=== PATIENT | female | born 1975 | race Caucasian/White ===

== ENCOUNTER 2019-09-25 18:02 | Inpatient (IN) ==
--- NOTE | 2019-09-25 18:35 | DR.GENAD ---
HPI Time Seen Time Seen by Provider: 09/25/19 18:33 PCP Primary Care Physician: HUSSAIN HPI Comment HPI Comment: PATIENT IS Complaint/Symptoms Chief Complaint Doctors Comments: RIGHT FLANK PAIN AND RIGHT SIDE ABDOMINAL PAIN INTERMITTENTLY TIMES 2 MONTHS. Chief Complaint:: patient stated she has been having abd pain and right flank pain for 2 months. no nausea just pain when she has a bowel movement Source History Provided: Patient Mode of Arrival Mode of Arrival: Ambulatory Timing Onset of Chief Complaint: 07/23/19 PMH PMH Past Medical History: No Past Surgical History: Yes Surgical History: [employer] Surgery Family History History of Family Medical Conditions: Yes Family Medical History: Diabetes Mellitus Social History Does patient currently use any type of tobacco product: No Have you used tobacco products in the last 12 months: No Type of Tobacco Use: None Does any household member use tobacco: No Alcohol Use: Occasionally Do you use any recreational Drugs:: No Lives With: Family Lives Where: Home infectious screening In the last 2 months have you had wt loss of >10#?: NO Have you had fever, night sweats or hemotysis?: No Have you traveled outside the country in the last 6 months?: No Isolation: Standard ROS Review of Systems Constitutional: No Symptoms Reported and See HPI Eyes: No Symptoms Reported and See HPI ENTM: No Symptoms Reported and See HPI Respiratoy: No Symptoms Reported and See HPI Cardiovascular: No Symptoms Reported and See HPI Gastrointestinal/Abdominal: No Symptoms Reported and See HPI Genitourinary: No Symptoms Reported and See HPI Neurological: No Symptoms Reported and See HPI Musculoskeletal: No Symptoms Reported and See HPI Integumentary: No Symptoms Reported and See HPI Hematologic/Lymphatic: No Symptoms Reported and See HPI Endocrine: No Symptoms Reported and See HPI Psychiatric: No Symptoms Reported and See HPI All Other Systems: Reviewed and Negative PE Vital Signs Vitals: Temperature 98.7 F Pulse Rate 94 Respiratory Rate 16 Blood Pressure 127/75 O2 Sat by Pulse Oximetry 100 General Limitations: No Limitations General Appearance: Alert and In No Apparent Distress Head Head Exam: Normal Inspection Eyes Eye exam: Normal Appearance ENT ENT Exam: Normal Exam External Ear Exam: Normal External Inspection TM/Canal Exam: Bilateral: Normal Nose Exam: Normal Nose Exam Mouth Exam: Normal Inspection Throat Exam: Normal Inspection Neck Neck Exam: Normal Inspection Chest Chest Inspection: Normal Inspection Respiratory Respiratory Exam: Normal Lung Sounds Bilat Respiratory Exam: Bilateral: Clear to Auscultation Cardiovascular Cardiovascular Exam: Regular Rate and Normal Rhythm Abdominal Exam Abdominal Exam: Normal Inspection, Normal Bowel Sounds and Soft Extremities Extremities Exam: Normal Inspection Back Back Exam: Normal Inspection Neurologic Neurological Exam: Alert and Oriented X3 Psychiatric Psychiatric Exam: Normal Affect and Normal Mood Skin Skin Exam: Warm, Dry, Intact and Normal Color ROR Labs Reviewed Result Diagrams: 09/25/19 19:01 09/25/19 19: Laboratory: WBC 12.0 X10^3/uL (3.6-10.0) H 09/25/19: RBC 3.45 X10^6/uL (3.5-5.4) L 09/25/19 19: Hgb 6.9 g/dL (12.0-16.0) L* 09/25/19: Hct 22.3 % (36.0-47.0) L 09/25/19: MCV 64.7 fL (80.0-100.0) L 09/25/19: MCH 20.1 pg (27.0-34.0) L 09/25/19: MCHC 31.0 g/dL (33.0-35.0) L 09/25/19 19: RDW 18.7 % (11.6-16.5) H 09/25/19: Plt Count 557 X10^3/uL (150.0-450.0) H 09/25/19: Plt Count Comment Increased (ADEQUATE) A 09/25/19: MPV 7.0 fL (7.4-11.0) L 09/25/19 19: Neut % (Auto) 68.5 % (42.0-75.0) 09/25/19: Lymph % (Auto) 16.6 % (21.0-51.0) L 09/25/19: [place] % (Auto) 4.7 % (0.0-13.0) 09/25/19 19: Eos % (Auto) 9.9 % (0.9-2.9) H 09/25/19 19: Baso % (Auto) 0.3 % (0.2-1.0) 09/25/19: Neut # (Auto) 8.2 x10^3/uL (2.2-4.8) H 09/25/19 19:01 Lymph # (Auto) 2.0 X10^3/uL (1.3-2.9) 09/25/19 19:01 [place] # (Auto) 0.6 x10^3/uL (0.3-0.8) 09/25/19 19:01 Eos # (Auto) 1.2 x10^3/uL (0.0-0.2) H 09/25/19 19:01 Baso # (Auto) 0.0 X10^3/uL (0.0-0.1) 09/25/19 19:01 Absolute Nucleated RBC 0.0 /100WBC 09/25/19 19: Plt Morphology Comment Normal (NORMAL) 09/25/19 19: RBC Morphology Abnormal (NORMAL) A 09/25/19 19:01 Hypochromasia 2+ A 09/25/19 19: Microcytosis 2+ A 09/25/19 19: Sodium 136 mmol/L (136-145) 09/25/19 19: Corrected Sodium 137 mmol/L (136-145) 09/25/19 19:01 Potassium 3.9 mmol/L (3.5-5.1) 09/25/19 19: Chloride 100 mmol/L (98-107) 09/25/19 19: Carbon Dioxide 25.9 mmol/L (21-32) 09/25/19 19:01 BUN 17 mg/dL (7-18) 09/25/19 19: Creatinine 0.70 mg/dL (0.55-1.02) 09/25/19 19:01 Est GFR (MDRD) Af Amer > 60 (>60) 09/25/19 19:01 Est GFR (MDRD) Non-Af > 60 (>60) 09/25/19 19: Glucose 122 mg/dL (65-99) H 09/25/19 19:01 Calcium 8.9 mg/dL (8.5-10.1) 09/25/19 19:01 Corrected Calcium 9.7 mg/dL (8.5-10.1) 09/25/19 19: Total Bilirubin 0.20 mg/dL (0.2-1.0) 09/25/19 19:01 AST 22 Units/L (15-37) 09/25/19 19:01 ALT 25 Units/L (12-78) 09/25/19 19: Alkaline Phosphatase 129 Units/L (46-116) H 09/25/19 19:01 Total Protein 7.1 g/dL (6.4-8.2) 09/25/19 19: Albumin 3.0 g/dL (3.4-5.0) L 09/25/19 19: Globulin 4.1 g/dL (2.5-4.5) 09/25/19 19: Albumin/Globulin Ratio 0.7 Ratio (1.1-2.1) L 09/25/19 19: Amylase 26 Units/L (25-115) 09/25/19 19: Lipase 230 Units/L (73-393) 09/25/19 19:01 Specimen Type Clean catch urine 09/25/19 18: Urine Color Yellow (YELLOW) 09/25/19 18: Urine Appearance Slightly hazy (CLEAR) 09/25/19 18:29 Urine pH 6.0 (5.0 - 8.0) 09/25/19 18:29 Ur Specific [place] 1.025 (1.000-1.030) 09/25/19 18: Urine Protein Negative (NEGATIVE) 09/25/19 18: Urine Glucose (UA) Negative (NEGATIVE) 09/25/19 18: Urine Ketones Negative (NEGATIVE) 09/25/19 18:29 Urine Occult Blood Negative (NEGATIVE) 09/25/19 18: Urine Nitrite Negative (NEGATIVE) 09/25/19 18: Urine Bilirubin Negative (NEGATIVE) 09/25/19 18:29 Urine Urobilinogen Normal (NORMAL) 09/25/19 18:29 Ur Leukocyte Esterase 2+ (NEGATIVE) 09/25/19 18:29 Urine RBC 0-2 /HPF (0-3) 09/25/19 18: Urine WBC 3-5 /HPF (0-5) 09/25/19 18:29 Ur Squamous Epith Cells Many /HPF (NEGATIVE) 09/25/19 18:29 Urine Bacteria Trace /HPF (NEGATIVE) 09/25/19 18:29 Ur Culture Indicated? No/not indicated 09/25/19 18:29 Opioid Opioid Risk Tool Total: 0 Total Score Risk Category: Low Risk Copyright: [employer] [facility] predicting aberrant behaviors
[2019-09-25 18:46] LABS: BILIRUBIN,URINE NEGATIVE (NEGATIVE); BLOOD/HEMOGLOBIN,URINE NEGATIVE (NEGATIVE); GLUCOSE, URINE NEGATIVE (NEGATIVE); KETONES,URINE NEGATIVE (NEGATIVE); LEUKOCYTE ESTERASE ,URINE 2+ (NEGATIVE); NITRITES,URINE NEGATIVE (NEGATIVE); PROTEIN,URINE NEGATIVE (NEGATIVE); UROBILINOGEN,URINE NORMAL (NORMAL)
[2019-09-25 18:56] LABS: APPEARANCE,URINE SLIGHTLY HAZY (CLEAR); BACTERIA,URINE TRACE /HPF (NEGATIVE); COLOR,URINE YELLOW (YELLOW); RBC,URINE 0-2 /HPF (0-3); SQUAMOUS EPITHELIAL CELL,UR MANY /HPF (NEGATIVE)
[2019-09-25 19:07] LABS: BASOPHILS % (AUTO) 0.3 % (0.2-1.0); EOSINOPHILS # (AUTO) 1.2 x10^3/uL (0.0-0.2); EOSINOPHILS % (AUTO) 9.9 % (0.9-2.9); HEMATOCRIT 22.3 % (36.0-47.0); LYMPHOCYTES % (AUTO) 16.6 % (21.0-51.0); MEAN CORPUSCULAR HEMOGLOBIN 20.1 pg (27.0-34.0); MEAN CORPUSCULAR VOLUME 64.7 fL (80.0-100.0); MONOCYTES # (AUTO) 0.6 x10^3/uL (0.3-0.8); MONOCYTES % (AUTO) 4.7 % (0.0-13.0); NEUTROPHILS # (AUTO) 8.2 x10^3/uL (2.2-4.8); NEUTROPHILS % (AUTO) 68.5 % (42.0-75.0); PLATELET COUNT 557 X10^3/uL (150.0-450.0); RED BLOOD COUNT 3.45 X10^6/uL (3.5-5.4); RED CELL DISTRIBUTION WIDTH 18.7 % (11.6-16.5)
--- NOTE | 2019-09-25 19:08 | CT ---
CT OF THE ABDOMEN AND PELVIS WITHOUT CONTRAST HISTORY: 2 months of right flank pain Comparison: None Technique: Multiple axial images of the abdomen and pelvis were obtained from the lung bases to the pubic symphysis without the administration of IV contrast. Dose reduction techniques including Automated Exposure Control (AEC) and adjustment of mA and kV were utlized. Findings: The heart is normal in size. There is no pericardial effusion. Lung bases are clear without focal consolidation, pleural effusion or pneumothorax. Large hiatal hernia The sensitivity for focal lesion detection within the solid abdominal viscera is diminished without the use of IV contrast. Liver and spleen are normal in size, and contour. There are multiple large hypoattenuating liver mass. The largest is in the right liver measuring over 11 cm. Central liver lesion measures 5.3 x 3.3 cm. Smaller right liver lesion measures 2.9 cm . No ductal dilitation. Gallbladder is present. No calcified gallstones or gallbladder wall thickening. The pancreas is unremarkable. Adrenal glands are normal. Kidneys are normal in contour without hydronephrosis or nephrolithiasis. No bowel obstruction or inflammation. Normal appendix. No abnormal appearing mesenteric or retroperitoneal lymph nodes. No free fluid or fluid collections. The bladder is normal in appearance. Uterus present. Tubal ligation clips present.. No free fluid or abnormal pelvic lymph nodes. No aggressive osseous lesions. IMPRESSION: 1. Multiple large liver masses. While these may be benign entities such as hemangiomas, metastatic malignancy can certainly not be excluded on this limited noncontrast examination. Would recommend MRI of the abdomen with and without contrast on a outpatient basis. Reported By:
[2019-09-25 19:19] LABS: HEMOGLOBIN 6.9 g/dL (12.0-16.0)
[2019-09-25 19:21] LABS: HYPOCHROMASIA 2+; MICROCYTOSIS 2+; PLATELET MORPHOLOGY COMMENT NORMAL (NORMAL)
[2019-09-25 19:38] LABS: ALANINE AMINOTRANSFERASE 25 Units/L (12-78); ALKALINE PHOSPHATASE 129 Units/L (46-116); AMYLASE 26 Units/L (25-115); ASPARTATE AMINO TRANSFERASE 22 Units/L (15-37); BLOOD UREA NITROGEN 17 mg/dL (7-18); CALCIUM 8.9 mg/dL (8.5-10.1); CARBON DIOXIDE 25.9 mmol/L (21-32); CHLORIDE 100 mmol/L (98-107); COR CA(FOR HYPOALB) 9.7 mg/dL (8.5-10.1); COR NA(FOR HYPERGLY) 137 mmol/L (136-145); LIPASE 230 Units/L (73-393); SODIUM 136 mmol/L (136-145); TOTAL PROTEIN 7.1 g/dL (6.4-8.2); eGFR NON BLACK RACES > 60 (>60)
[2019-09-25] MEDS ORDERED: ZOFRAN INJ 4 MG VIAL IVP ONE (20:20)
[2019-09-25] MEDS ORDERED: DEMEROL INJ IVP ONE (20:20)
[2019-09-25] MEDS ORDERED: ZOFRAN INJ 4 MG VIAL ONE (20:31)
[2019-09-25] MEDS ORDERED: DEMEROL INJ ONE (20:32)
[2019-09-25] MEDS ORDERED: NS 250 ML IV 250 ML IV ONE (22:05)
[2019-09-25] MEDS: NS 1000 ML 1,000 ML IV SCH (22:09)
[2019-09-25 23:45] VITALS: BMI 34.4
[2019-09-26] MEDS: PROTONIX INJ 40 MG VIAL IVP SCH ×3 (00:30→21:27)
[2019-09-26] MEDS: DEMEROL INJ IVP PRN ×3 (00:30→15:13)
[2019-09-26 04:55] LABS: BASOPHILS # (AUTO) 0.1 X10^3/uL (0.0-0.1); BASOPHILS % (AUTO) 0.5 % (0.2-1.0); EOSINOPHILS # (AUTO) 1.2 x10^3/uL (0.0-0.2); EOSINOPHILS % (AUTO) 11.3 % (0.9-2.9); HEMATOCRIT 27.4 % (36.0-47.0); HEMOGLOBIN 8.6 g/dL (12.0-16.0); LYMPHOCYTES # (AUTO) 1.7 X10^3/uL (1.3-2.9); LYMPHOCYTES % (AUTO) 16.5 % (21.0-51.0); MEAN CORPUSCULAR HEMOGLOBIN 21.9 pg (27.0-34.0); MEAN CORPUSCULAR HGB CONC 31.6 g/dL (33.0-35.0); MEAN CORPUSCULAR VOLUME 69.4 fL (80.0-100.0); MEAN PLATELET VOLUME 7.5 fL (7.4-11.0); MONOCYTES # (AUTO) 0.6 x10^3/uL (0.3-0.8); MONOCYTES % (AUTO) 5.7 % (0.0-13.0); PLATELET COUNT 501 X10^3/uL (150.0-450.0); RED BLOOD COUNT 3.94 X10^6/uL (3.5-5.4); RED CELL DISTRIBUTION WIDTH 22.2 % (11.6-16.5); WHITE BLOOD COUNT 10.5 X10^3/uL (3.6-10.0)
[2019-09-26 04:59] LABS: ALANINE AMINOTRANSFERASE 24 Units/L (12-78); ALBUMIN 2.8 g/dL (3.4-5.0); ALKALINE PHOSPHATASE 123 Units/L (46-116); ASPARTATE AMINO TRANSFERASE 20 Units/L (15-37); BLOOD UREA NITROGEN 11 mg/dL (7-18); CALCIUM 8.5 mg/dL (8.5-10.1); CARBON DIOXIDE 27.2 mmol/L (21-32); CHLORIDE 101 mmol/L (98-107); COR CA(FOR HYPOALB) 9.5 mg/dL (8.5-10.1); COR NA(FOR HYPERGLY) 138 mmol/L (136-145); CREATININE 0.63 mg/dL (0.55-1.02); SODIUM 137 mmol/L (136-145); TOTAL PROTEIN 6.6 g/dL (6.4-8.2); eGFR NON BLACK RACES > 60 (>60)
[2019-09-26 06:07] LABS: PLATELET MORPHOLOGY COMMENT NORMAL (NORMAL)
[2019-09-26 06:08] LABS: ANISOCYTOSIS 2+; HYPOCHROMASIA 2+; MICROCYTOSIS 1+
--- NOTE | 2019-09-26 15:56 | MRI ---
MRI OF THE ABDOMEN WITHOUT AND WITH IV CONTRAST Clinical indication: Abdominal pain and liver masses Procedure: Multiplanar multi sequence MRI of the abdomen were obtained with and without the administration of intravenous contrast according to standard departmental protocol. Comparisons: CT 09/25/2019 Findings: MRI of the abdomen without contrast: No significant iron or fat deposition in the liver or spleen. No significant ascites. MRI of the abdomen with contrast: Multiple liver masses are present. The largest is in the inferior liver measuring 11 x 9 cm. This is intrinsically T2 bright, T2 dark. There is some reticular enhancement appears to progressed somewhat on delayed phase images although this does not have the typical peripheral nodular enhancement with filling in of a hemangioma. This enhancement appears to demonstrate radial septations. Similar lesions can be seen in the right liver measuring 3 cm on series 701, image 15 and in the left liver measuring 5.4 cm on series 701, image 7. This lesion in the left liver appears to demonstrate significant mass effect and possible invasion of the infra cardiac I see Gallbladder is present. No gallstones. No filling defects within the common bile duct. No ductal dilatation. Pancreas demonstrates normal T1 signal. No pancreatic masses. Adrenal glands are normal. Kidneys demonstrate normal cortical medullary differentiation. No hydronephrosis. Visualized bowel is unremarkable. No suspicious lymph nodes. Impression: 1. Multiple liver masses as above that are somewhat atypical. The left liver lesion appears to invade the IVC. Primary differential consideration would be metastatic disease of unknown primary. Additional consideration would be fibrolamellar carcinoma. Given patient's demographic, it should be noted that these do not have the typical imaging characteristics of adenoma, hemangioma or focal nodular hyperplasia. Tissue sampling will likely be required. Reported By:
[2019-09-26] MEDS ORDERED: NS 250 ML IV 250 ML IV ONE (17:53)
[2019-09-26] MEDS: NS 1000 ML 1,000 ML IV SCH (19:11)
[2019-09-26] MEDS: ULTRAM PO PRN (19:16)
[2019-09-26] MEDS ORDERED: POTASSIUM CHLORIDE LIQ 20 MEQ UDC PO PRN (22:47)
[2019-09-26] MEDS ORDERED: KLOR-CON PO PRN (22:47)
[2019-09-26] MEDS ORDERED: POTASSIUM CHL 60 MEQ/NS 0.45% 500 ML IV PRN (22:47)
[2019-09-26] MEDS ORDERED: POTASSIUM CHL 40 MEQ/NS 0.45% 500 ML IV PRN (22:47)
[2019-09-26] MEDS ORDERED: K-DUR TAB 20 MEQ PO PRN (22:47)
[2019-09-27] MEDS: DEMEROL INJ IVP PRN ×3 (01:28→20:33)
[2019-09-27] MEDS: NS 1000 ML 1,000 ML IV SCH ×2 (02:12→14:00)
[2019-09-27 02:23] LABS: HEMATOCRIT 33.6 % (36.0-47.0)
[2019-09-27 02:34] LABS: HEMOGLOBIN 10.6 g/dL (12.0-16.0)
[2019-09-27] MEDS: MAGNESIUM SULFATE 1 GRAM/100 mL PREMIX 1 GM/100 ML BAG IV PRN ×2 (05:20→05:21)
[2019-09-27 06:47] LABS: BASOPHILS % (AUTO) 0.4 % (0.2-1.0); EOSINOPHILS # (AUTO) 1.2 x10^3/uL (0.0-0.2); EOSINOPHILS % (AUTO) 10.2 % (0.9-2.9); HEMATOCRIT 33.5 % (36.0-47.0); HEMOGLOBIN 10.8 g/dL (12.0-16.0); LYMPHOCYTES # (AUTO) 1.8 X10^3/uL (1.3-2.9); LYMPHOCYTES % (AUTO) 14.8 % (21.0-51.0); MEAN CORPUSCULAR HEMOGLOBIN 23.3 pg (27.0-34.0); MEAN CORPUSCULAR HGB CONC 32.3 g/dL (33.0-35.0); MEAN CORPUSCULAR VOLUME 72.2 fL (80.0-100.0); MEAN PLATELET VOLUME 7.6 fL (7.4-11.0); MONOCYTES # (AUTO) 0.7 x10^3/uL (0.3-0.8); MONOCYTES % (AUTO) 5.5 % (0.0-13.0); NEUTROPHILS # (AUTO) 8.2 x10^3/uL (2.2-4.8); NEUTROPHILS % (AUTO) 69.1 % (42.0-75.0); PLATELET COUNT 469 X10^3/uL (150.0-450.0); RED BLOOD COUNT 4.63 X10^6/uL (3.5-5.4); RED CELL DISTRIBUTION WIDTH 24.2 % (11.6-16.5); WHITE BLOOD COUNT 11.9 X10^3/uL (3.6-10.0)
[2019-09-27 06:55] LABS: ALANINE AMINOTRANSFERASE 23 Units/L (12-78); ALBUMIN 2.8 g/dL (3.4-5.0); ALKALINE PHOSPHATASE 128 Units/L (46-116); ASPARTATE AMINO TRANSFERASE 22 Units/L (15-37); BLOOD UREA NITROGEN 10 mg/dL (7-18); CARBON DIOXIDE 26.4 mmol/L (21-32); CHLORIDE 99 mmol/L (98-107); SODIUM 134 mmol/L (136-145); TOTAL PROTEIN 6.9 g/dL (6.4-8.2); eGFR NON BLACK RACES > 60 (>60)
[2019-09-27 07:02] LABS: PLATELET MORPHOLOGY COMMENT NORMAL (NORMAL)
[2019-09-27 07:04] LABS: ANISOCYTOSIS 3+; HYPOCHROMASIA 1+
[2019-09-27 07:05] LABS: MICROCYTOSIS SLIGHT
[2019-09-27] MEDS: PROTONIX INJ 40 MG VIAL IVP SCH ×2 (09:46→20:33)
--- NOTE | 2019-09-27 11:12 | PCM.PROG ---
Progress Note Progress Note for Day of Date of Exam: 09/27/19 Subjective Subjective: Pt is a 44 yo f presenting w/ right flank pain and right sided abdominal pain x [address] abdomen that noted on multiple large liver masses. MRI performed yesterday. Briefly discussed results with patient and likely need for further evaluation to be determined. Abdominal pain improved from day prior. MRI(09/26/19): Multiple liver masses as above that are somewhat atypical. The left liver lesion appears to invade the IVC. Primary differential consideration would be metastatic disease of unknown primary. Additional consideration would be fibrolamellar carcinoma. Given patient's demographic, it should be noted that these do not have the typical imaging characteristics of adenoma, hemangioma or focal nodular hyperplasia. Tissue sampling will likely be required. Past Medical Family Social History Past Med/Fam/Surg Hx: No changes since H&P Allergies: Allergies No Known Drug Allergies Allergy (Verified 09/25/19 23:48) Review of Systems ROS: No change since H&P Vital Signs and I&O's Vital Signs: Temperature 99.6 F Pulse Rate [Brachial] 78 Pulse Rate 83 Respiratory Rate 18 Blood Pressure [Left Arm] 118/69 Blood Pressure 116/61 O2 Sat by Pulse Oximetry 98 Intake and Output: Intake & Output 09/24/19 09/25/19 09/26/19 09/27/19 23:59 23:59 23:59 23:59 Intake Total 410 / 410 2166 / 2166 220 / 220 Balance 410 / 410 2166 / 2166 220 / 220 Physical Exam Oriented: Normal Nose: Normal Respiratory: Normal Cardiovascular: Normal : Normal Auscultation: Bowel Sounds: Normal Tenderness: RUQ (mild) Skin: Normal Musculoskeletal: Normal Psychiatric: Normal Mood Description: Calm Affect: Anxious Speech Pattern: Clear and Appropriate Laboratory and Diagnostics Result Diagrams: 09/27/19 06:12 09/27/19 06:12 Labs: Laboratory WBC 11.9 X10^3/uL (3.6-10.0) H 09/27/19 06:12 RBC 4.63 X10^6/uL (3.5-5.4) 09/27/19 06:12 Hgb 10.8 g/dL (12.0-16.0) L 09/27/19 06:12 Hct 33.5 % (36.0-47.0) L 09/27/19 06:12 MCV 72.2 fL (80.0-100.0) L 09/27/19 06:12 MCH 23.3 pg (27.0-34.0) L 09/27/19 06:12 MCHC 32.3 g/dL (33.0-35.0) L 09/27/19 06:12 RDW 24.2 % (11.6-16.5) H 09/27/19 06:12 Plt Count 469 X10^3/uL (150.0-450.0) H 09/27/19 06:12 Plt Count Comment Increased (ADEQUATE) A 09/27/19 06:12 MPV 7.6 fL (7.4-11.0) 09/27/19 06:12 Neut % (Auto) 69.1 % (42.0-75.0) 09/27/19 06:12 Lymph % (Auto) 14.8 % (21.0-51.0) L 09/27/19 06:12 [place] % (Auto) 5.5 % (0.0-13.0) 09/27/19 06:12 Eos % (Auto) 10.2 % (0.9-2.9) H 09/27/19 06:12 Baso % (Auto) 0.4 % (0.2-1.0) 09/27/19 06:12 Neut # (Auto) 8.2 x10^3/uL (2.2-4.8) H 09/27/19 06:12 Lymph # (Auto) 1.8 X10^3/uL (1.3-2.9) 09/27/19 06:12 [place] # (Auto) 0.7 x10^3/uL (0.3-0.8) 09/27/19 06:12 Eos # (Auto) 1.2 x10^3/uL (0.0-0.2) H 09/27/19 06:12 Baso # (Auto) 0.0 X10^3/uL (0.0-0.1) 09/27/19 06:12 Absolute Nucleated RBC 0.0 /100WBC 09/27/19 06:12 Plt Morphology Comment Normal (NORMAL) 09/27/19 06:12 RBC Morphology Abnormal (NORMAL) A 09/27/19 06:12 Hypochromasia 1+ A 09/27/19 06:12 Anisocytosis 3+ A 09/27/19 06:12 Microcytosis Slight A 09/27/19 06:12 PT 12.6 SECONDS (11.8-14.3) 09/26/19 04:13 INR Target Range - 09/26/19 04:13 INR 0.98 (0.8-1.3) 09/26/19 04:13 APTT 25.2 SECONDS (22.9-36.5) 09/26/19 04:13 PTT Comment - 09/26/19 04:13 Sodium 134 mmol/L (136-145) L 09/27/19 06:12 Corrected Sodium TNP 09/27/19 06:12 Potassium 3.9 mmol/L (3.5-5.1) 09/27/19 06:12 Chloride 99 mmol/L (98-107) 09/27/19 06:12 Carbon Dioxide 26.4 mmol/L (21-32) 09/27/19 06:12 BUN 10 mg/dL (7-18) 09/27/19 06:12 Creatinine 0.60 mg/dL (0.55-1.02) 09/27/19 06:12 Est GFR (MDRD) Af Amer > 60 (>60) 09/27/19 06:12 Est GFR (MDRD) Non-Af > 60 (>60) 09/27/19 06:12 Glucose 109 mg/dL (65-99) H 09/27/19 06:12 Calcium 9.0 mg/dL (8.5-10.1) 09/27/19 06:12 Corrected Calcium 10.0 mg/dL (8.5-10.1) 09/27/19 06:12 Magnesium 1.6 mg/dL (1.7-2.9) L 09/26/19 04:13 Iron 14 ug/dL (50-175) L 09/25/19 20:27 Transferrin 343 mg/dL (202-364) 09/25/19 20:27 Ferritin 20 ng/mL (8-252) 09/25/19 20:27 Total Bilirubin 0.40 mg/dL (0.2-1.0) 09/27/19 06:12 AST 22 Units/L (15-37) 09/27/19 06:12 ALT 23 Units/L (12-78) 09/27/19 06:12 Alkaline Phosphatase 128 Units/L (46-116) H 09/27/19 06:12 Total Protein 6.9 g/dL (6.4-8.2) 09/27/19 06:12 Albumin 2.8 g/dL (3.4-5.0) L 09/27/19 06:12 Globulin 4.1 g/dL (2.5-4.5) 09/27/19 06:12 Albumin/Globulin Ratio 0.7 Ratio (1.1-2.1) L 09/27/19 06:12 Amylase 26 Units/L (25-115) 09/25/19 19:01 Lipase 230 Units/L (73-393) 09/25/19 19:01 Vitamin B12 1182 pg/mL (193-986) H 09/25/19 20:27 Folate 12.1 ng/mL (>8.6) 09/25/19 20:27 Specimen Type Clean catch urine 09/25/19 18:29 Urine Color Yellow (YELLOW) 09/25/19 18:29 Urine Appearance Slightly hazy (CLEAR) 09/25/19 18: Urine pH 6.0 (5.0 - 8.0) 09/25/19 18: Ur Specific [place] 1.025 (1.000-1.030) 09/25/19 18:29 Urine Protein Negative (NEGATIVE) 09/25/19 18:29 Urine Glucose (UA) Negative (NEGATIVE) 09/25/19 18:29 Urine Ketones Negative (NEGATIVE) 09/25/19 18: Urine Occult Blood Negative (NEGATIVE) 09/25/19 18: Urine Nitrite Negative (NEGATIVE) 09/25/19 18:29 Urine Bilirubin Negative (NEGATIVE) 09/25/19 18:29 Urine Urobilinogen Normal (NORMAL) 09/25/19 18:29 Ur Leukocyte Esterase 2+ (NEGATIVE) 09/25/19 18:29 Urine RBC 0-2 /HPF (0-3) 09/25/19 18:29 Urine WBC 3-5 /HPF (0-5) 09/25/19 18:29 Ur Squamous Epith Cells Many /HPF (NEGATIVE) 09/25/19 18:29 Urine Bacteria Trace /HPF (NEGATIVE) 09/25/19 18:29 Ur Culture Indicated? No/not indicated 09/25/19 18:29 Blood Type B POSITIVE 09/25/19 20:27 Antibody Screen Negative 09/25/19 20:27 Crossmatch See Detail 09/25/19 20:27 Plan (1) Liver masses: Status: Acute Plan: -MRI findings multiple liver masses suspicious for metastatic disease of unknown primary. Will need additional evaluation and biopsy of mass. (2) Anemia: Status: Acute Plan: Hgb:10.8
[2019-09-27] MEDS: ZOFRAN INJ 4 MG VIAL IVP PRN (14:55)
[2019-09-28] MEDS: NS 1000 ML 1,000 ML IV SCH ×2 (03:13→17:08)
[2019-09-28 06:36] LABS: BASOPHILS % (AUTO) 0.3 % (0.2-1.0); EOSINOPHILS % (AUTO) 9.4 % (0.9-2.9); HEMATOCRIT 34.3 % (36.0-47.0); HEMOGLOBIN 11.1 g/dL (12.0-16.0); LYMPHOCYTES # (AUTO) 1.5 X10^3/uL (1.3-2.9); LYMPHOCYTES % (AUTO) 13.3 % (21.0-51.0); MEAN CORPUSCULAR HEMOGLOBIN 23.3 pg (27.0-34.0); MEAN CORPUSCULAR HGB CONC 32.3 g/dL (33.0-35.0); MEAN CORPUSCULAR VOLUME 72.2 fL (80.0-100.0); MEAN PLATELET VOLUME 7.4 fL (7.4-11.0); MONOCYTES # (AUTO) 0.7 x10^3/uL (0.3-0.8); MONOCYTES % (AUTO) 6.6 % (0.0-13.0); NEUTROPHILS # (AUTO) 7.7 x10^3/uL (2.2-4.8); NEUTROPHILS % (AUTO) 70.4 % (42.0-75.0); PLATELET COUNT 489 X10^3/uL (150.0-450.0); RED BLOOD COUNT 4.75 X10^6/uL (3.5-5.4); RED CELL DISTRIBUTION WIDTH 24.5 % (11.6-16.5)
[2019-09-28 06:46] LABS: ANISOCYTOSIS 3+; HYPOCHROMASIA 1+; MICROCYTOSIS SLIGHT; PLATELET MORPHOLOGY COMMENT NORMAL (NORMAL)
[2019-09-28 06:51] LABS: ALANINE AMINOTRANSFERASE 23 Units/L (12-78); ALBUMIN 2.8 g/dL (3.4-5.0); ALKALINE PHOSPHATASE 131 Units/L (46-116); ASPARTATE AMINO TRANSFERASE 21 Units/L (15-37); BLOOD UREA NITROGEN 7 mg/dL (7-18); CARBON DIOXIDE 27.9 mmol/L (21-32); CHLORIDE 100 mmol/L (98-107); COR NA(FOR HYPERGLY) 138 mmol/L (136-145); CREATININE 0.58 mg/dL (0.55-1.02); MAGNESIUM 1.8 mg/dL (1.7-2.9); SODIUM 137 mmol/L (136-145); TOTAL PROTEIN 7.1 g/dL (6.4-8.2); eGFR NON BLACK RACES > 60 (>60)
[2019-09-28] MEDS: PROTONIX INJ 40 MG VIAL IVP SCH ×2 (09:01→20:08)
--- NOTE | 2019-09-28 10:37 | PCM.PROG ---
Progress Note Progress Note for Day of Date of Exam: 09/28/19 Subjective Subjective: Pt is a 44 yo f presenting w/ right flank pain and right sided abdominal pain x 2 months. She was anemic on admission, requiring 2 units of packed red blood cells. Her hgb has remained stable. MRI performed of abd after CT concerning for liver lesions, results noted multiple liver masses. She reports today that her abdominal pain has improved. She is tolerating po intake, reports some constipation. Has not had bowel movement since but is still passing gas. No acute concerns overnight. MRI(09/26/19): Multiple liver masses as above that are somewhat atypical. The left liver lesion appears to invade the IVC. Primary differential consideration would be metastatic disease of unknown primary. Additional consideration would be fibrolamellar carcinoma. Given patient's demographic, it should be noted that these do not have the typical imaging characteristics of adenoma, hemangioma or focal nodular hyperplasia. Tissue sampling will likely be required. Past Medical Family Social History Past Med/Fam/Surg Hx: No changes since H&P Allergies: Allergies No Known Drug Allergies Allergy (Verified 09/25/19 23:48) Review of Systems ROS: No change since H&P Vital Signs and I&O's Vital Signs: Temperature 99.6 F Pulse Rate [Brachial] 69 Pulse Rate 83 Respiratory Rate 16 Blood Pressure [Left Arm] 123/69 Blood Pressure 116/61 O2 Sat by Pulse Oximetry 98 Intake and Output: Intake & Output 09/25/19 09/26/19 09/27/19 09/28/19 23:59 23:59 23:59 23:59 Intake Total 410 / 410 2166 / 2166 1260 / 1260 540 / 540 Balance 410 / 410 2166 / 2166 1260 / 1260 540 / 540 Physical Exam Oriented: Normal Nose: Normal Respiratory: Normal Cardiovascular: Normal : Normal Auscultation: Bowel Sounds: Normal Tenderness: RUQ (mild) Skin: Normal Musculoskeletal: Normal Psychiatric: Normal Mood Description: Calm Affect: Anxious Speech Pattern: Clear and Appropriate Laboratory and Diagnostics Result Diagrams: 09/29/19 05:59 09/29/19 05:59 Labs: Laboratory WBC 11.0 X10^3/uL (3.6-10.0) H 09/28/19 06:13 RBC 4.75 X10^6/uL (3.5-5.4) 09/28/19 06:13 Hgb 11.1 g/dL (12.0-16.0) L 09/28/19 06:13 Hct 34.3 % (36.0-47.0) L 09/28/19 06:13 MCV 72.2 fL (80.0-100.0) L 09/28/19 06:13 MCH 23.3 pg (27.0-34.0) L 09/28/19 06:13 MCHC 32.3 g/dL (33.0-35.0) L 09/28/19 06:13 RDW 24.5 % (11.6-16.5) H 09/28/19 06:13 Plt Count 489 X10^3/uL (150.0-450.0) H 09/28/19 06:13 Plt Count Comment Increased (ADEQUATE) A 09/28/19 06:13 MPV 7.4 fL (7.4-11.0) 09/28/19 06:13 Neut % (Auto) 70.4 % (42.0-75.0) 09/28/19 06:13 Lymph % (Auto) 13.3 % (21.0-51.0) L 09/28/19 06:13 [place] % (Auto) 6.6 % (0.0-13.0) 09/28/19 06:13 Eos % (Auto) 9.4 % (0.9-2.9) H 09/28/19 06:13 Baso % (Auto) 0.3 % (0.2-1.0) 09/28/19 06:13 Neut # (Auto) 7.7 x10^3/uL (2.2-4.8) H 09/28/19 06:13 Lymph # (Auto) 1.5 X10^3/uL (1.3-2.9) 09/28/19 06:13 [place] # (Auto) 0.7 x10^3/uL (0.3-0.8) 09/28/19 06:13 Eos # (Auto) 1.0 x10^3/uL (0.0-0.2) H 09/28/19 06:13 Baso # (Auto) 0.0 X10^3/uL (0.0-0.1) 09/28/19 06:13 Absolute Nucleated RBC 0.0 /100WBC 09/28/19 06:13 Plt Morphology Comment Normal (NORMAL) 09/28/19 06:13 RBC Morphology Abnormal (NORMAL) A 09/28/19 06:13 Hypochromasia 1+ A 09/28/19 06:13 Anisocytosis 3+ A 09/28/19 06:13 Microcytosis Slight A 09/28/19 06:13 PT 12.6 SECONDS (11.8-14.3) 09/26/19 04:13 INR Target Range - 09/26/19 04:13 INR 0.98 (0.8-1.3) 09/26/19 04:13 APTT 25.2 SECONDS (22.9-36.5) 09/26/19 04:13 PTT Comment - 09/26/19 04:13 Sodium 137 mmol/L (136-145) 09/28/19 06:13 Corrected Sodium 138 mmol/L (136-145) 09/28/19 06:13 Potassium 3.6 mmol/L (3.5-5.1) 09/28/19 06:13 Chloride 100 mmol/L (98-107) 09/28/19 06:13 Carbon Dioxide 27.9 mmol/L (21-32) 09/28/19 06:13 BUN 7 mg/dL (7-18) 09/28/19 06:13 Creatinine 0.58 mg/dL (0.55-1.02) 09/28/19 06:13 Est GFR (MDRD) Af Amer > 60 (>60) 09/28/19 06:13 Est GFR (MDRD) Non-Af > 60 (>60) 09/28/19 06:13 Glucose 152 mg/dL (65-99) H 09/28/19 06:13 Calcium 9.0 mg/dL (8.5-10.1) 09/28/19 06:13 Corrected Calcium 10.0 mg/dL (8.5-10.1) 09/28/19 06:13 Magnesium 1.8 mg/dL (1.7-2.9) 09/28/19 06:13 Iron 14 ug/dL (50-175) L 09/25/19 20:27 Transferrin 343 mg/dL (202-364) 09/25/19 20:27 Ferritin 20 ng/mL (8-252) 09/25/19 20:27 Total Bilirubin 0.40 mg/dL (0.2-1.0) 09/28/19 06:13 AST 21 Units/L (15-37) 09/28/19 06:13 ALT 23 Units/L (12-78) 09/28/19 06:13 Alkaline Phosphatase 131 Units/L (46-116) H 09/28/19 06:13 Total Protein 7.1 g/dL (6.4-8.2) 09/28/19 06:13 Albumin 2.8 g/dL (3.4-5.0) L 09/28/19 06:13 Globulin 4.3 g/dL (2.5-4.5) 09/28/19 06:13 Albumin/Globulin Ratio 0.7 Ratio (1.1-2.1) L 09/28/19 06:13 Amylase 26 Units/L (25-115) 09/25/19 19:01 Lipase 230 Units/L (73-393) 09/25/19 19:01 Vitamin B12 1182 pg/mL (193-986) H 09/25/19 20:27 Folate 12.1 ng/mL (>8.6) 09/25/19 20:27 Specimen Type Clean catch urine 09/25/19 18: Urine Color Yellow (YELLOW) 09/25/19 18: Urine Appearance Slightly hazy (CLEAR) 09/25/19 18: Urine pH 6.0 (5.0 - 8.0) 09/25/19 18: Ur Specific [place] 1.025 (1.000-1.030) 09/25/19 18: Urine Protein Negative (NEGATIVE) 09/25/19 18: Urine Glucose (UA) Negative (NEGATIVE) 09/25/19 18: Urine Ketones Negative (NEGATIVE) 09/25/19 18: Urine Occult Blood Negative (NEGATIVE) 09/25/19 18: Urine Nitrite Negative (NEGATIVE) 09/25/19 18: Urine Bilirubin Negative (NEGATIVE) 09/25/19 18: Urine Urobilinogen Normal (NORMAL) 09/25/19 18:29 Ur Leukocyte Esterase 2+ (NEGATIVE) 09/25/19 18: Urine RBC 0-2 /HPF (0-3) 09/25/19 18:29 Urine WBC 3-5 /HPF (0-5) 09/25/19 18:29 Ur Squamous Epith Cells Many /HPF (NEGATIVE) 09/25/19 18:29 Urine Bacteria Trace /HPF (NEGATIVE) 09/25/19 18:29 Ur Culture Indicated? No/not indicated 09/25/19 18:29 Blood Type B POSITIVE 09/25/19 20:27 Antibody Screen Negative 09/25/19 20:27 Crossmatch See Detail 09/25/19 20:27 Plan (1) Liver masses: Status: Acute Plan: -MRI findings multiple liver masses suspicious for metastatic disease of unknown primary. Will need additional evaluation and biopsy of mass. -CEA ordered. Primary to follow up in the morning. (2) Anemia: Status: Acute Plan: Hgb:6.9>2 units packed red blood cells>10.8>11.1, FOBT ordered. (3) Constipation: Status: Acute Plan: Ordered miralax and Colace.
[2019-09-28] MEDS: DEMEROL INJ IVP PRN ×2 (10:39→20:08)
[2019-09-28] MEDS: MIRALAX POWDER (1 DOSE 17 G) PO SCH (11:11)
[2019-09-28] MEDS: ULTRAM PO PRN (14:28)
[2019-09-28] MEDS: COLACE CAP 100 MG PO PRN (22:13)
[2019-09-29] MEDS: NS 1000 ML 1,000 ML IV SCH ×2 (05:09→17:01)
[2019-09-29 06:33] LABS: BASOPHILS # (AUTO) 0.1 X10^3/uL (0.0-0.1); BASOPHILS % (AUTO) 0.4 % (0.2-1.0); EOSINOPHILS # (AUTO) 1.3 x10^3/uL (0.0-0.2); EOSINOPHILS % (AUTO) 11.1 % (0.9-2.9); HEMATOCRIT 33.7 % (36.0-47.0); HEMOGLOBIN 10.9 g/dL (12.0-16.0); LYMPHOCYTES # (AUTO) 1.4 X10^3/uL (1.3-2.9); LYMPHOCYTES % (AUTO) 12.1 % (21.0-51.0); MEAN CORPUSCULAR HEMOGLOBIN 23.6 pg (27.0-34.0); MEAN CORPUSCULAR HGB CONC 32.4 g/dL (33.0-35.0); MEAN CORPUSCULAR VOLUME 72.8 fL (80.0-100.0); MEAN PLATELET VOLUME 7.6 fL (7.4-11.0); MONOCYTES # (AUTO) 0.5 x10^3/uL (0.3-0.8); MONOCYTES % (AUTO) 4.7 % (0.0-13.0); NEUTROPHILS # (AUTO) 8.2 x10^3/uL (2.2-4.8); NEUTROPHILS % (AUTO) 71.7 % (42.0-75.0); PLATELET COUNT 466 X10^3/uL (150.0-450.0); RED BLOOD COUNT 4.64 X10^6/uL (3.5-5.4); RED CELL DISTRIBUTION WIDTH 24.2 % (11.6-16.5); WHITE BLOOD COUNT 11.5 X10^3/uL (3.6-10.0)
[2019-09-29 07:01] LABS: ALANINE AMINOTRANSFERASE 29 Units/L (12-78); ALBUMIN 2.7 g/dL (3.4-5.0); ALKALINE PHOSPHATASE 139 Units/L (46-116); ASPARTATE AMINO TRANSFERASE 27 Units/L (15-37); BLOOD UREA NITROGEN 10 mg/dL (7-18); CALCIUM 9.1 mg/dL (8.5-10.1); CARBON DIOXIDE 27.5 mmol/L (21-32); CHLORIDE 100 mmol/L (98-107); COR CA(FOR HYPOALB) 10.1 mg/dL (8.5-10.1); CREATININE 0.61 mg/dL (0.55-1.02); SODIUM 137 mmol/L (136-145); eGFR NON BLACK RACES > 60 (>60)
[2019-09-29 07:08] LABS: HYPOCHROMASIA 1+; PLATELET MORPHOLOGY COMMENT NORMAL (NORMAL)
[2019-09-29 07:09] LABS: ANISOCYTOSIS 3+
[2019-09-29] MEDS ORDERED: NS 100 ML IV 100 ML with VENOFER 400 MG IV NR ×2 (09:03)
[2019-09-29] MEDS: PROTONIX INJ 40 MG VIAL IVP SCH ×2 (09:20→21:03)
[2019-09-29] MEDS: MIRALAX POWDER (1 DOSE 17 G) PO SCH (09:20)
[2019-09-29] MEDS: NULYTELY or GO-LYTELY PO SCH (10:34)
[2019-09-29] MEDS: ULTRAM PO PRN (21:03)
[2019-09-29] MEDS: TYLENOL 325 MG TAB PO PRN (21:31)
[2019-09-30] MEDS ORDERED: NS 500 ML IV 500 ML IV ONE (07:16)
[2019-09-30] MEDS ORDERED: DIPRIVAN VIAL 40 ML ONE (07:28)
[2019-09-30] MEDS ORDERED: DIPRIVAN VIAL 20 ML ONE (07:29)
[2019-09-30] MEDS ORDERED: XYLOCAINE-MPF 1% ONE (07:29)
[2019-09-30] MEDS ORDERED: VERSED ONE ×2 (07:29→10:11)
[2019-09-30] MEDS: NS 1000 ML 1,000 ML IV SCH ×2 (07:42→18:17)
--- NOTE | 2019-09-30 08:15 | OR.IMMED ---
Immediate Post-Op Note - Immediate Post-Op Note Pre-Op Diagnosis: anemia . rectal bleeding . liver mets . Post-Op Diagnosis: hiatal hernia without esophagitis . no ulcers or bleeding . ulcerated rectal mass around 15 cm suspicious for malignancy . Procedure: 1-EGD . 2-colonoscopy to the cecum with Bx and Tattooing of rectal mass .. Description of Procedure: see operative report . Surgeon/Ocular Care Technologist: Bogdan Findings: hiatal hernia . rectal mass at 15 cm suspicious for malignancy .. Estimated Blood Loss: no Drains: NONE Complications: no. Condition: Stable (will wait for pathology report and D/W Dr Du and Pt..)
[2019-09-30] MEDS: MIRALAX POWDER (1 DOSE 17 G) PO SCH (08:33)
[2019-09-30] MEDS: PROTONIX INJ 40 MG VIAL IVP SCH ×2 (08:33→21:15)
[2019-09-30] MEDS: NULYTELY or GO-LYTELY PO SCH (08:34)
[2019-09-30] MEDS ORDERED: XYLOCAINE 1 % (PLAIN) ONE (10:11)
[2019-09-30] MEDS ORDERED: DIPRIVAN VIAL ONE (10:11)
[2019-09-30] MEDS: DEMEROL INJ IVP PRN (14:26)
[2019-09-30] MEDS ORDERED: STERILE WATER IRRIGATION IR ONE (15:43)
[2019-10-01] MEDS ORDERED: NS 100 ML IV 100 ML with VENOFER 400 MG IV NR ×2 (08:07)
[2019-10-01] MEDS: NS 1000 ML 1,000 ML IV SCH (10:01)
[2019-10-01] MEDS: PROTONIX INJ 40 MG VIAL IVP SCH ×2 (10:02→20:43)
[2019-10-01 11:43] LABS: BASOPHILS # (AUTO) 0.1 X10^3/uL (0.0-0.1); BASOPHILS % (AUTO) 0.6 % (0.2-1.0); EOSINOPHILS # (AUTO) 0.3 x10^3/uL (0.0-0.2); EOSINOPHILS % (AUTO) 3.6 % (0.9-2.9); HEMOGLOBIN 10.8 g/dL (12.0-16.0); LYMPHOCYTES # (AUTO) 1.4 X10^3/uL (1.3-2.9); LYMPHOCYTES % (AUTO) 14.2 % (21.0-51.0); MEAN CORPUSCULAR HEMOGLOBIN 23.3 pg (27.0-34.0); MEAN CORPUSCULAR HGB CONC 31.9 g/dL (33.0-35.0); MEAN PLATELET VOLUME 7.4 fL (7.4-11.0); MONOCYTES # (AUTO) 0.5 x10^3/uL (0.3-0.8); MONOCYTES % (AUTO) 5.5 % (0.0-13.0); NEUTROPHILS # (AUTO) 7.5 x10^3/uL (2.2-4.8); NEUTROPHILS % (AUTO) 76.1 % (42.0-75.0); PLATELET COUNT 487 X10^3/uL (150.0-450.0); RED BLOOD COUNT 4.66 X10^6/uL (3.5-5.4); RED CELL DISTRIBUTION WIDTH 24.6 % (11.6-16.5); WHITE BLOOD COUNT 9.8 X10^3/uL (3.6-10.0)
[2019-10-01 11:56] LABS: ALANINE AMINOTRANSFERASE 27 Units/L (12-78); ALKALINE PHOSPHATASE 141 Units/L (46-116); ASPARTATE AMINO TRANSFERASE 22 Units/L (15-37); BLOOD UREA NITROGEN 5 mg/dL (7-18); CALCIUM 9.3 mg/dL (8.5-10.1); CHLORIDE 101 mmol/L (98-107); COR CA(FOR HYPOALB) 10.1 mg/dL (8.5-10.1); CREATININE 0.51 mg/dL (0.55-1.02); SODIUM 137 mmol/L (136-145); TOTAL PROTEIN 6.6 g/dL (6.4-8.2); eGFR NON BLACK RACES > 60 (>60)
[2019-10-01] MEDS ORDERED: LR 1000 ML IV 1,000 ML IV ONE (11:56)
[2019-10-01] MEDS ORDERED: MORPHINE SULFATE INJ 10 MG ONE (11:56)
[2019-10-01] MEDS ORDERED: NS 1000 ML 1,000 ML ONE ×2 (11:56→12:13)
[2019-10-01] MEDS ORDERED: DECADRON INJ ONE ×2 (11:56→14:34)
[2019-10-01] MEDS ORDERED: FENTANYL INJ 100 mcg ONE ×2 (11:56→15:02)
[2019-10-01] MEDS ORDERED: ZEMURON ONE (11:57)
[2019-10-01] MEDS ORDERED: BACITRACIN VIAL ONE ×2 (12:00→14:22)
[2019-10-01 12:13] LABS: ANISOCYTOSIS 2+; HYPOCHROMASIA 1+; PLATELET MORPHOLOGY COMMENT NORMAL (NORMAL)
[2019-10-01] MEDS ORDERED: NS 100 ML IV 100 ML IV ONE (12:13)
[2019-10-01] MEDS ORDERED: ANCEF VIAL 1 GRAM ONE (12:13)
[2019-10-01] MEDS ORDERED: FLAGYL IV PREMIX 500 MG BAG 500 MG/100 ML BAG IV ONE (12:23)
--- NOTE | 2019-10-01 12:43 | RAD ---
History: Preop for rectal mass Exam: Chest x-ray Comparison: None Technique: PA and lateral Findings: The left ventricle is mildly enlarged. The pulmonary vessels are normal. No consolidation or effusion is seen. There is a small hiatal hernia along the lower mediastinum. The bones are intact. IMPRESSION: Mild left ventricular enlargement with no acute pulmonary abnormality. Small hiatal hernia along the lower mediastinum. Reported By:
[2019-10-01] MEDS ORDERED: FENTANYL INJ 250 mcg ONE ×2 (13:01→13:29)
[2019-10-01 13:26] LABS: BILIRUBIN,URINE NEGATIVE (NEGATIVE); BLOOD/HEMOGLOBIN,URINE NEGATIVE (NEGATIVE); GLUCOSE, URINE NEGATIVE (NEGATIVE); KETONES,URINE NEGATIVE (NEGATIVE); LEUKOCYTE ESTERASE ,URINE NEGATIVE (NEGATIVE); NITRITES,URINE NEGATIVE (NEGATIVE); PROTEIN,URINE NEGATIVE (NEGATIVE); UROBILINOGEN,URINE NORMAL (NORMAL)
[2019-10-01 13:27] LABS: APPEARANCE,URINE CLEAR (CLEAR); COLOR,URINE YELLOW (YELLOW)
[2019-10-01] MEDS ORDERED: DILAUDID INJ ONE ×3 (13:29→20:31)
[2019-10-01] MEDS: MIRALAX POWDER (1 DOSE 17 G) PO SCH (14:20)
[2019-10-01] MEDS ORDERED: NORCURON INJ 10 MG VIAL ONE (14:34)
[2019-10-01] MEDS ORDERED: ZOFRAN INJ 4 MG VIAL ONE (14:34)
[2019-10-01] MEDS ORDERED: ULTANE GAS IN ONE (14:34)
[2019-10-01] MEDS ORDERED: NEOSTIGMINE INJ ONE (14:34)
[2019-10-01] MEDS ORDERED: VERSED ONE (14:34)
[2019-10-01] MEDS ORDERED: QUELICIN (OR ANECTINE) ONE (14:34)
[2019-10-01] MEDS ORDERED: ROBINUL ONE (14:34)
[2019-10-01] MEDS ORDERED: NS IRRIGATION 1000 ML ONE (14:45)
[2019-10-01] MEDS ORDERED: BENADRYL INJ 50 MG VIAL IVP PRN (16:05)
[2019-10-01] MEDS ORDERED: ZOFRAN INJ 4 MG VIAL IVP PRN (16:05)
[2019-10-01] MEDS ORDERED: REGLAN INJ 10 MG VIAL IVP PRN (16:05)
[2019-10-01] MEDS ORDERED: PHENERGAN INJ 25 MG IM PRN (16:05)
--- NOTE | 2019-10-01 16:16 | OR.IMMED ---
Immediate Post-Op Note - Immediate Post-Op Note Pre-Op Diagnosis: bleeding retal mass suspicious for rectal ca with partial obstruction . rectal bleeding and anemia . liver lesions . 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 Procedure: exploratory laparotomy. anterior resection of recal tumor with EEA anastomosis . liver Bx Surgeon/Service Associate: Bogdan Specimens Removed: recto sigmoid and upper rectum . liver Bx. 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
[2019-10-01] MEDS ORDERED: DILAUDID INJ IVP PRN (16:24)
[2019-10-01] MEDS: DILAUDID INJ IVP PRN ×3 (16:35→23:19)
[2019-10-01] MEDS: ZOFRAN INJ 4 MG VIAL IVP PRN (18:17)
[2019-10-01] MEDS: D5 1/2 NS 1000 ML 1,000 ML IV SCH (18:44)
[2019-10-01] MEDS: LOVENOX INJ 40 MG SYR SC SCH (18:45)
[2019-10-01] MEDS ORDERED: DILAUDID INJ IVP ONE (20:27)
[2019-10-01] MEDS: FLAGYL IV PREMIX 500 MG BAG 500 MG/100 ML BAG IV SCH (20:47)
[2019-10-02] MEDS: D5 1/2 NS 1000 ML 1,000 ML IV SCH ×5 (01:57→21:51)
[2019-10-02] MEDS: DILAUDID INJ IVP PRN ×8 (01:58→23:30)
[2019-10-02] MEDS: FLAGYL IV PREMIX 500 MG BAG 500 MG/100 ML BAG IV SCH ×4 (02:14→20:27)
[2019-10-02 06:13] LABS: BASOPHILS % (AUTO) 0.3 % (0.2-1.0); EOSINOPHILS # (AUTO) 0.1 x10^3/uL (0.0-0.2); EOSINOPHILS % (AUTO) 0.4 % (0.9-2.9); LYMPHOCYTES # (AUTO) 1.6 X10^3/uL (1.3-2.9); LYMPHOCYTES % (AUTO) 12.5 % (21.0-51.0); MEAN CORPUSCULAR HEMOGLOBIN 23.6 pg (27.0-34.0); MEAN CORPUSCULAR HGB CONC 32.1 g/dL (33.0-35.0); MEAN CORPUSCULAR VOLUME 73.3 fL (80.0-100.0); MEAN PLATELET VOLUME 7.8 fL (7.4-11.0); MONOCYTES # (AUTO) 0.7 x10^3/uL (0.3-0.8); MONOCYTES % (AUTO) 5.1 % (0.0-13.0); NEUTROPHILS # (AUTO) 10.7 x10^3/uL (2.2-4.8); NEUTROPHILS % (AUTO) 81.7 % (42.0-75.0); PLATELET COUNT 459 X10^3/uL (150.0-450.0); RED BLOOD COUNT 3.83 X10^6/uL (3.5-5.4); RED CELL DISTRIBUTION WIDTH 24.4 % (11.6-16.5); WHITE BLOOD COUNT 13.1 X10^3/uL (3.6-10.0)
[2019-10-02 06:18] LABS: ALANINE AMINOTRANSFERASE 17 Units/L (12-78); ALBUMIN 2.3 g/dL (3.4-5.0); ALKALINE PHOSPHATASE 96 Units/L (46-116); ASPARTATE AMINO TRANSFERASE 19 Units/L (15-37); BLOOD UREA NITROGEN 5 mg/dL (7-18); CALCIUM 8.1 mg/dL (8.5-10.1); CARBON DIOXIDE 27.1 mmol/L (21-32); CHLORIDE 102 mmol/L (98-107); COR CA(FOR HYPOALB) 9.5 mg/dL (8.5-10.1); COR NA(FOR HYPERGLY) 137 mmol/L (136-145); CREATININE 0.72 mg/dL (0.55-1.02); MAGNESIUM 1.3 mg/dL (1.7-2.9); SODIUM 136 mmol/L (136-145); TOTAL PROTEIN 5.9 g/dL (6.4-8.2); eGFR NON BLACK RACES > 60 (>60)
[2019-10-02] MEDS: MAGNESIUM SULFATE 1 GRAM/100 mL PREMIX 1 GM/100 ML BAG IV PRN ×4 (06:46→11:14)
[2019-10-02 06:48] LABS: ANISOCYTOSIS 2+; HYPOCHROMASIA 1+; PLATELET MORPHOLOGY COMMENT NORMAL (NORMAL)
[2019-10-02] MEDS: PROTONIX INJ 40 MG VIAL IVP SCH ×2 (08:57→20:27)
[2019-10-02] MEDS: LOVENOX INJ 40 MG SYR SC SCH (09:14)
[2019-10-02] MEDS: LEVAQUIN PREMIX IV 500 MG 500 MG/100 ML BAG IV SCH (09:54)
--- NOTE | 2019-10-02 09:58 | DR.PROGNOT ---
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 doing fairly well . good urine out put . minimal drainage in CRISTOFER and NGT . - Past Medical Family Social History Past Med/Fam/Surg Hx: No changes since H&P Allergies: Allergies No Known Drug Allergies Allergy (Verified 09/25/19 23:48) - Review Of Systems ROS: No change since H&P - Vital Signs Vital Signs: Temperature 99.2 F Pulse Rate [Brachial] 69 Pulse Rate 76 Respiratory Rate 22 Blood Pressure [Left Arm] 118/65 Blood Pressure 98/56 O2 Sat by Pulse Oximetry 97 - Physical Exam Oriented: Normal Eyes: Normal Ear: Normal Nose: Normal Throat: Normal Respiratory: Normal Cardiovascular: Normal : Normal GI:Auscultation: Normal, Decreased GI: Tenderness: Diffuse (incisional tenderness .) Skin: Normal Musculoskeletal: Normal Psychiatric: Normal Mood Description: Calm Affect: Anxious Speech Pattern: Clear, Appropriate - Laboratory and Diagnostics Result Diagrams: 10/02/19 05:20 10/02/19 05:20 Labs: 09/29/19 21:15 Blood Blood Culture - Preliminary 09/29/19 21:14 Blood Blood Culture - Preliminary Laboratory WBC 13.1 X10^3/uL (3.6-10.0) H 10/02/19 05:20 RBC 3.83 X10^6/uL (3.5-5.4) 10/02/19 05:20 Hgb 9.0 g/dL (12.0-16.0) L 10/02/19 05:20 Hct 28.0 % (36.0-47.0) L 10/02/19 05:20 MCV 73.3 fL (80.0-100.0) L 10/02/19 05:20 MCH 23.6 pg (27.0-34.0) L 10/02/19 05:20 MCHC 32.1 g/dL (33.0-35.0) L 10/02/19 05:20 RDW 24.4 % (11.6-16.5) H 10/02/19 05:20 Plt Count 459 X10^3/uL (150.0-450.0) H 10/02/19 05:20 Plt Count Comment Adequate (ADEQUATE) 10/02/19 05:20 MPV 7.8 fL (7.4-11.0) 10/02/19 05:20 Neut % (Auto) 81.7 % (42.0-75.0) H 10/02/19 05:20 Lymph % (Auto) 12.5 % (21.0-51.0) L 10/02/19 05:20 [place] % (Auto) 5.1 % (0.0-13.0) 10/02/19 05:20 Eos % (Auto) 0.4 % (0.9-2.9) L 10/02/19 05:20 Baso % (Auto) 0.3 % (0.2-1.0) 10/02/19 05:20 Neut # (Auto) 10.7 x10^3/uL (2.2-4.8) H 10/02/19 05:20 Lymph # (Auto) 1.6 X10^3/uL (1.3-2.9) 10/02/19 05:20 [place] # (Auto) 0.7 x10^3/uL (0.3-0.8) 10/02/19 05:20 Eos # (Auto) 0.1 x10^3/uL (0.0-0.2) 10/02/19 05:20 Baso # (Auto) 0.0 X10^3/uL (0.0-0.1) 10/02/19 05:20 Absolute Nucleated RBC 0.0 /100WBC 10/02/19 05:20 Plt Morphology Comment Normal (NORMAL) 10/02/19 05:20 RBC Morphology Abnormal (NORMAL) A 10/02/19 05:20 Hypochromasia 1+ A 10/02/19 05:20 Anisocytosis 2+ A 10/02/19 05:20 Microcytosis Slight A 09/28/19 06:13 PT 12.6 SECONDS (11.8-14.3) 09/26/19 04:13 INR Target Range - 09/26/19 04:13 INR 0.98 (0.8-1.3) 09/26/19 04:13 APTT 25.2 SECONDS (22.9-36.5) 09/26/19 04:13 PTT Comment - 09/26/19 04:13 Sodium 136 mmol/L (136-145) 10/02/19 05:20 Corrected Sodium 137 mmol/L (136-145) 10/02/19 05:20 Potassium 3.6 mmol/L (3.5-5.1) 10/02/19 05:20 Chloride 102 mmol/L (98-107) 10/02/19 05:20 Carbon Dioxide 27.1 mmol/L (21-32) 10/02/19 05:20 BUN 5 mg/dL (7-18) L 10/02/19 05:20 Creatinine 0.72 mg/dL (0.55-1.02) 10/02/19 05:20 Est GFR (MDRD) Af Amer > 60 (>60) 10/02/19 05:20 Est GFR (MDRD) Non-Af > 60 (>60) 10/02/19 05:20 Glucose 138 mg/dL (65-99) H 10/02/19 05:20 Calcium 8.1 mg/dL (8.5-10.1) L 10/02/19 05:20 Corrected Calcium 9.5 mg/dL (8.5-10.1) 10/02/19 05:20 Magnesium 1.3 mg/dL (1.7-2.9) L 10/02/19 05:20 Iron 14 ug/dL (50-175) L 09/25/19 20:27 Transferrin 343 mg/dL (202-364) 09/25/19 20:27 Ferritin 20 ng/mL (8-252) 09/25/19 20:27 Total Bilirubin 0.60 mg/dL (0.2-1.0) 10/02/19 05:20 AST 19 Units/L (15-37) 10/02/19 05:20 ALT 17 Units/L (12-78) 10/02/19 05:20 Alkaline Phosphatase 96 Units/L (46-116) 10/02/19 05:20 Total Protein 5.9 g/dL (6.4-8.2) L 10/02/19 05:20 Albumin 2.3 g/dL (3.4-5.0) L 10/02/19 05:20 Globulin 3.6 g/dL (2.5-4.5) 10/02/19 05:20 Albumin/Globulin Ratio 0.6 Ratio (1.1-2.1) L 10/02/19 05:20 Amylase 26 Units/L (25-115) 09/25/19 19:01 Lipase 230 Units/L (73-393) 09/25/19 19:01 Carcinoembryonic Ag 1426.0 ng/mL (0.0-3.0) H 09/28/19 06:13 Vitamin B12 1182 pg/mL (193-986) H 09/25/19 20:27 Folate 12.1 ng/mL (>8.6) 09/25/19 20:27 Specimen Type Catherized urine 10/01/19 12:43 Urine Color Yellow (YELLOW) 10/01/19 12:43 Urine Appearance Clear (CLEAR) 10/01/19 12:43 Urine pH 7.0 (5.0 - 8.0) 10/01/19 12:43 Ur Specific [place] 1.010 (1.000-1.030) 10/01/19 12:43 Urine Protein Negative (NEGATIVE) 10/01/19 12:43 Urine Glucose (UA) Negative (NEGATIVE) 10/01/19 12:43 Urine Ketones Negative (NEGATIVE) 10/01/19 12:43 Urine Occult Blood Negative (NEGATIVE) 10/01/19 12:43 Urine Nitrite Negative (NEGATIVE) 10/01/19 12:43 Urine Bilirubin Negative (NEGATIVE) 10/01/19 12:43 Urine Urobilinogen Normal (NORMAL) 10/01/19 12:43 Ur Leukocyte Esterase Negative (NEGATIVE) 10/01/19 12:43 Urine RBC 0-2 /HPF (0-3) 09/25/19 18:29 Urine WBC 3-5 /HPF (0-5) 09/25/19 18:29 Ur Squamous Epith Cells Many /HPF (NEGATIVE) 09/25/19 18:29 Urine Bacteria Trace /HPF (NEGATIVE) 09/25/19 18:29 Ur Culture Indicated? No/not indicated 09/25/19 18:29 Tissue Pathology To follow 10/01/19 13:10 Blood Type B POSITIVE 10/01/19 11:27 Antibody Screen Negative 10/01/19 11:27 Crossmatch See Detail 10/01/19 11:27 - Assessment and Plan 1: rectal ca with liver mets . s/p abdominal surgery as above . to d/c [place] . DVT prophylaxis . same ATB because of mild contamination in the pelvis . OOB with binder - Problem Patient Problems: Patient Problems Constipation (Acute) K59.00 Anemia (Acute) D64.9 Liver masses (Acute) R16.0
[2019-10-02] MEDS: TYLENOL 325 MG TAB PO PRN (16:33)
[2019-10-02] MEDS: ZOFRAN INJ 4 MG VIAL IVP PRN (17:30)
[2019-10-03] MEDS: D5 1/2 NS 1000 ML 1,000 ML IV SCH ×4 (00:33→17:43)
[2019-10-03] MEDS: DILAUDID INJ IVP PRN ×7 (02:45→23:52)
[2019-10-03] MEDS: FLAGYL IV PREMIX 500 MG BAG 500 MG/100 ML BAG IV SCH ×4 (03:31→21:55)
[2019-10-03] MEDS: TYLENOL 325 MG TAB PO PRN ×2 (06:27→17:48)
[2019-10-03 06:43] LABS: BASOPHILS % (AUTO) 0.3 % (0.2-1.0); EOSINOPHILS # (AUTO) 0.2 x10^3/uL (0.0-0.2); EOSINOPHILS % (AUTO) 1.7 % (0.9-2.9); HEMATOCRIT 25.7 % (36.0-47.0); HEMOGLOBIN 8.3 g/dL (12.0-16.0); LYMPHOCYTES # (AUTO) 1.1 X10^3/uL (1.3-2.9); LYMPHOCYTES % (AUTO) 9.7 % (21.0-51.0); MEAN CORPUSCULAR HGB CONC 32.4 g/dL (33.0-35.0); MEAN CORPUSCULAR VOLUME 74.3 fL (80.0-100.0); MEAN PLATELET VOLUME 8.2 fL (7.4-11.0); MONOCYTES # (AUTO) 0.6 x10^3/uL (0.3-0.8); MONOCYTES % (AUTO) 5.1 % (0.0-13.0); NEUTROPHILS # (AUTO) 9.1 x10^3/uL (2.2-4.8); NEUTROPHILS % (AUTO) 83.2 % (42.0-75.0); PLATELET COUNT 397 X10^3/uL (150.0-450.0); RED BLOOD COUNT 3.46 X10^6/uL (3.5-5.4); RED CELL DISTRIBUTION WIDTH 24.4 % (11.6-16.5); WHITE BLOOD COUNT 10.9 X10^3/uL (3.6-10.0)
[2019-10-03 06:49] LABS: ALANINE AMINOTRANSFERASE 15 Units/L (12-78); ALBUMIN 2.2 g/dL (3.4-5.0); ALKALINE PHOSPHATASE 84 Units/L (46-116); ASPARTATE AMINO TRANSFERASE 18 Units/L (15-37); BLOOD UREA NITROGEN 3 mg/dL (7-18); CALCIUM 8.3 mg/dL (8.5-10.1); CARBON DIOXIDE 28.2 mmol/L (21-32); CHLORIDE 100 mmol/L (98-107); COR CA(FOR HYPOALB) 9.7 mg/dL (8.5-10.1); COR NA(FOR HYPERGLY) 137 mmol/L (136-145); CREATININE 0.52 mg/dL (0.55-1.02); MAGNESIUM 1.4 mg/dL (1.7-2.9); SODIUM 136 mmol/L (136-145); TOTAL PROTEIN 5.6 g/dL (6.4-8.2); eGFR NON BLACK RACES > 60 (>60)
[2019-10-03 07:05] LABS: ANISOCYTOSIS 3+; PLATELET MORPHOLOGY COMMENT NORMAL (NORMAL)
[2019-10-03] MEDS: LOVENOX INJ 40 MG SYR SC SCH (08:43)
[2019-10-03] MEDS: LEVAQUIN PREMIX IV 500 MG 500 MG/100 ML BAG IV SCH (09:45)
[2019-10-03] MEDS: PROTONIX INJ 40 MG VIAL IVP SCH ×2 (09:45→21:30)
[2019-10-03] MEDS: ZOFRAN INJ 4 MG VIAL IVP PRN (11:57)
[2019-10-03] MEDS: MAGNESIUM SULFATE 1 GRAM/100 mL PREMIX 1 GM/100 ML BAG IV PRN ×3 (12:37→19:30)
--- NOTE | 2019-10-03 13:56 | DR.PROGNOT ---
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 doing fairly well . good urine out put . minimal drainage in CRISTOFER and NGT . pathology report of the Bx is adenocarcinoma . - Past Medical Family Social History Past Med/Fam/Surg Hx: No changes since H&P Allergies: Allergies No Known Drug Allergies Allergy (Verified 09/25/19 23:48) - Review Of Systems ROS: No change since H&P - Vital Signs Vital Signs: Temperature 97.7 F Pulse Rate [Brachial] 69 Pulse Rate 70 Respiratory Rate 15 Blood Pressure [Left Arm] 118/65 Blood Pressure 121/60 O2 Sat by Pulse Oximetry 99 - Physical Exam Oriented: Normal Eyes: Normal Ear: Normal Nose: Normal Throat: Normal Respiratory: Normal Cardiovascular: Normal : Normal GI:Auscultation: Normal, Decreased GI: Tenderness: Diffuse (incisional tenderness .) Skin: Normal Musculoskeletal: Normal Psychiatric: Normal Mood Description: Calm Affect: Anxious Speech Pattern: Clear, Appropriate - Laboratory and Diagnostics Result Diagrams: 10/03/19 05:54 10/03/19 05:54 Labs: 09/29/19 21:15 Blood Blood Culture - Preliminary 09/29/19 21:14 Blood Blood Culture - Preliminary Laboratory WBC 10.9 X10^3/uL (3.6-10.0) H 10/03/19 05:54 RBC 3.46 X10^6/uL (3.5-5.4) L 10/03/19 05:54 Hgb 8.3 g/dL (12.0-16.0) L 10/03/19 05:54 Hct 25.7 % (36.0-47.0) L 10/03/19 05:54 MCV 74.3 fL (80.0-100.0) L 10/03/19 05:54 MCH 24.0 pg (27.0-34.0) L 10/03/19 05:54 MCHC 32.4 g/dL (33.0-35.0) L 10/03/19 05:54 RDW 24.4 % (11.6-16.5) H 10/03/19 05:54 Plt Count 397 X10^3/uL (150.0-450.0) 10/03/19 05:54 Plt Count Comment Adequate (ADEQUATE) 10/03/19 05:54 MPV 8.2 fL (7.4-11.0) 10/03/19 05:54 Neut % (Auto) 83.2 % (42.0-75.0) H 10/03/19 05:54 Lymph % (Auto) 9.7 % (21.0-51.0) L 10/03/19 05:54 [place] % (Auto) 5.1 % (0.0-13.0) 10/03/19 05:54 Eos % (Auto) 1.7 % (0.9-2.9) 10/03/19 05:54 Baso % (Auto) 0.3 % (0.2-1.0) 10/03/19 05:54 Neut # (Auto) 9.1 x10^3/uL (2.2-4.8) H 10/03/19 05:54 Lymph # (Auto) 1.1 X10^3/uL (1.3-2.9) L 10/03/19 05:54 [place] # (Auto) 0.6 x10^3/uL (0.3-0.8) 10/03/19 05:54 Eos # (Auto) 0.2 x10^3/uL (0.0-0.2) 10/03/19 05:54 Baso # (Auto) 0.0 X10^3/uL (0.0-0.1) 10/03/19 05:54 Absolute Nucleated RBC 0.0 /100WBC 10/03/19 05:54 Plt Morphology Comment Normal (NORMAL) 10/03/19 05:54 RBC Morphology Abnormal (NORMAL) A 10/03/19 05:54 Hypochromasia 1+ A 10/02/19 05:20 Anisocytosis 3+ A 10/03/19 05:54 Microcytosis Slight A 09/28/19 06:13 PT 12.6 SECONDS (11.8-14.3) 09/26/19 04:13 INR Target Range - 09/26/19 04:13 INR 0.98 (0.8-1.3) 09/26/19 04:13 APTT 25.2 SECONDS (22.9-36.5) 09/26/19 04:13 PTT Comment - 09/26/19 04:13 Sodium 136 mmol/L (136-145) 10/03/19 05:54 Corrected Sodium 137 mmol/L (136-145) 10/03/19 05:54 Potassium 3.3 mmol/L (3.5-5.1) L 10/03/19 05:54 Chloride 100 mmol/L (98-107) 10/03/19 05:54 Carbon Dioxide 28.2 mmol/L (21-32) 10/03/19 05:54 BUN 3 mg/dL (7-18) L 10/03/19 05:54 Creatinine 0.52 mg/dL (0.55-1.02) L 10/03/19 05:54 Est GFR (MDRD) Af Amer > 60 (>60) 10/03/19 05:54 Est GFR (MDRD) Non-Af > 60 (>60) 10/03/19 05:54 Glucose 144 mg/dL (65-99) H 10/03/19 05:54 Calcium 8.3 mg/dL (8.5-10.1) L 10/03/19 05:54 Corrected Calcium 9.7 mg/dL (8.5-10.1) 10/03/19 05:54 Magnesium 1.4 mg/dL (1.7-2.9) L 10/03/19 05:54 Iron 14 ug/dL (50-175) L 09/25/19 20:27 Transferrin 343 mg/dL (202-364) 09/25/19 20:27 Ferritin 20 ng/mL (8-252) 09/25/19 20:27 Total Bilirubin 0.40 mg/dL (0.2-1.0) 10/03/19 05:54 AST 18 Units/L (15-37) 10/03/19 05:54 ALT 15 Units/L (12-78) 10/03/19 05:54 Alkaline Phosphatase 84 Units/L (46-116) 10/03/19 05:54 Total Protein 5.6 g/dL (6.4-8.2) L 10/03/19 05:54 Albumin 2.2 g/dL (3.4-5.0) L 10/03/19 05:54 Globulin 3.4 g/dL (2.5-4.5) 10/03/19 05:54 Albumin/Globulin Ratio 0.6 Ratio (1.1-2.1) L 10/03/19 05:54 Amylase 26 Units/L (25-115) 09/25/19 19:01 Lipase 230 Units/L (73-393) 09/25/19 19:01 Carcinoembryonic Ag 1426.0 ng/mL (0.0-3.0) H 09/28/19 06:13 Vitamin B12 1182 pg/mL (193-986) H 09/25/19 20:27 Folate 12.1 ng/mL (>8.6) 09/25/19 20:27 Specimen Type Catherized urine 10/01/19 12:43 Urine Color Yellow (YELLOW) 10/01/19 12:43 Urine Appearance Clear (CLEAR) 10/01/19 12:43 Urine pH 7.0 (5.0 - 8.0) 10/01/19 12:43 Ur Specific [place] 1.010 (1.000-1.030) 10/01/19 12:43 Urine Protein Negative (NEGATIVE) 10/01/19 12:43 Urine Glucose (UA) Negative (NEGATIVE) 10/01/19 12:43 Urine Ketones Negative (NEGATIVE) 10/01/19 12:43 Urine Occult Blood Negative (NEGATIVE) 10/01/19 12:43 Urine Nitrite Negative (NEGATIVE) 10/01/19 12:43 Urine Bilirubin Negative (NEGATIVE) 10/01/19 12:43 Urine Urobilinogen Normal (NORMAL) 10/01/19 12:43 Ur Leukocyte Esterase Negative (NEGATIVE) 10/01/19 12:43 Urine RBC 0-2 /HPF (0-3) 09/25/19 18:29 Urine WBC 3-5 /HPF (0-5) 09/25/19 18:29 Ur Squamous Epith Cells Many /HPF (NEGATIVE) 09/25/19 18:29 Urine Bacteria Trace /HPF (NEGATIVE) 09/25/19 18:29 Ur Culture Indicated? No/not indicated 09/25/19 18:29 Tissue Pathology To follow 10/01/19 13:10 Blood Type B POSITIVE 10/01/19 11:27 Antibody Screen Negative 10/01/19 11:27 Crossmatch See Detail 10/01/19 11:27 - Assessment and Plan 1: rectal ca with liver mets . s/p abdominal surgery as above . DVT prophylaxis . same ATB because of mild contamination in the pelvis . OOB with binder . d/c NGT , only ice chips .and water . - Problem Patient Problems: Patient Problems Constipation (Acute) K59.00 Anemia (Acute) D64.9 Liver masses (Acute) R16.0
[2019-10-03] MEDS: K-RIDER 10 MEQ/NS 100 ML 10 MEQ/100 ML BAG IV PRN (23:32)
[2019-10-04] MEDS: K-RIDER 10 MEQ/NS 100 ML 10 MEQ/100 ML BAG IV PRN ×2 (00:48→02:01)
[2019-10-04] MEDS: D5 1/2 NS 1000 ML 1,000 ML IV SCH ×4 (00:48→17:03)
[2019-10-04] MEDS: FLAGYL IV PREMIX 500 MG BAG 500 MG/100 ML BAG IV SCH (03:08)
[2019-10-04] MEDS: DILAUDID INJ IVP PRN ×4 (03:55→17:00)
[2019-10-04 05:24] LABS: BASOPHILS % (AUTO) 0.2 % (0.2-1.0); EOSINOPHILS # (AUTO) 0.3 x10^3/uL (0.0-0.2); EOSINOPHILS % (AUTO) 2.5 % (0.9-2.9); HEMATOCRIT 25.3 % (36.0-47.0); HEMOGLOBIN 8.3 g/dL (12.0-16.0); LYMPHOCYTES # (AUTO) 1.1 X10^3/uL (1.3-2.9); MEAN CORPUSCULAR HEMOGLOBIN 24.1 pg (27.0-34.0); MEAN CORPUSCULAR HGB CONC 32.7 g/dL (33.0-35.0); MEAN CORPUSCULAR VOLUME 73.6 fL (80.0-100.0); MEAN PLATELET VOLUME 7.9 fL (7.4-11.0); MONOCYTES # (AUTO) 0.6 x10^3/uL (0.3-0.8); MONOCYTES % (AUTO) 5.5 % (0.0-13.0); NEUTROPHILS # (AUTO) 8.4 x10^3/uL (2.2-4.8); NEUTROPHILS % (AUTO) 80.8 % (42.0-75.0); PLATELET COUNT 431 X10^3/uL (150.0-450.0); RED BLOOD COUNT 3.43 X10^6/uL (3.5-5.4); RED CELL DISTRIBUTION WIDTH 24.3 % (11.6-16.5); WHITE BLOOD COUNT 10.4 X10^3/uL (3.6-10.0)
[2019-10-04 05:36] LABS: HYPOCHROMASIA 1+; PLATELET MORPHOLOGY COMMENT NORMAL (NORMAL)
[2019-10-04 05:37] LABS: ANISOCYTOSIS SLIGHT
[2019-10-04 05:45] LABS: ALANINE AMINOTRANSFERASE 15 Units/L (12-78); ALBUMIN 2.3 g/dL (3.4-5.0); ALKALINE PHOSPHATASE 91 Units/L (46-116); ASPARTATE AMINO TRANSFERASE 18 Units/L (15-37); BLOOD UREA NITROGEN 2 mg/dL (7-18); CALCIUM 8.4 mg/dL (8.5-10.1); CARBON DIOXIDE 31.3 mmol/L (21-32); CHLORIDE 101 mmol/L (98-107); COR CA(FOR HYPOALB) 9.8 mg/dL (8.5-10.1); COR NA(FOR HYPERGLY) 138 mmol/L (136-145); CREATININE 0.57 mg/dL (0.55-1.02); MAGNESIUM 1.6 mg/dL (1.7-2.9); SODIUM 138 mmol/L (136-145); TOTAL PROTEIN 6.1 g/dL (6.4-8.2); eGFR NON BLACK RACES > 60 (>60)
[2019-10-04] MEDS: PROTONIX INJ 40 MG VIAL IVP SCH ×2 (08:49→20:01)
[2019-10-04] MEDS: LEVAQUIN PREMIX IV 500 MG 500 MG/100 ML BAG IV SCH (08:50)
[2019-10-04] MEDS: LOVENOX INJ 40 MG SYR SC SCH (08:52)
--- NOTE | 2019-10-04 09:59 | DR.PROGNOT ---
Hospital Progress Notes - Progress Note for Day of: Progress Note Date: 10/04/19 - Chief Complaint Chief Complaint: doing fairly well . good urine out put . passing flatus. pathology report of the Bx is adenocarcinoma . - Past Medical Family Social History Past Med/Fam/Surg Hx: No changes since H&P Allergies: Allergies No Known Drug Allergies Allergy (Verified 09/25/19 23:48) - Review Of Systems ROS: No change since H&P - Vital Signs Vital Signs: Temperature 98.4 F Pulse Rate [Brachial] 69 Pulse Rate 77 Respiratory Rate 17 Blood Pressure [Left Arm] 118/65 Blood Pressure 114/65 O2 Sat by Pulse Oximetry 96 - Physical Exam Oriented: Normal Eyes: Normal Ear: Normal Nose: Normal Throat: Normal Respiratory: Normal Cardiovascular: Normal : Normal GI:Auscultation: Normal, Decreased GI: Tenderness: Diffuse (incisional tenderness .) Skin: Normal Musculoskeletal: Normal Psychiatric: Normal Mood Description: Calm Affect: Anxious Speech Pattern: Clear, Appropriate - Laboratory and Diagnostics Result Diagrams: 10/04/19 03:56 10/04/19 03:56 Labs: 09/29/19 21:15 Blood Blood Culture - Preliminary 09/29/19 21:14 Blood Blood Culture - Preliminary Laboratory WBC 10.4 X10^3/uL (3.6-10.0) H 10/04/19 03:56 RBC 3.43 X10^6/uL (3.5-5.4) L 10/04/19 03:56 Hgb 8.3 g/dL (12.0-16.0) L 10/04/19 03:56 Hct 25.3 % (36.0-47.0) L 10/04/19 03:56 MCV 73.6 fL (80.0-100.0) L 10/04/19 03:56 MCH 24.1 pg (27.0-34.0) L 10/04/19 03:56 MCHC 32.7 g/dL (33.0-35.0) L 10/04/19 03:56 RDW 24.3 % (11.6-16.5) H 10/04/19 03:56 Plt Count 431 X10^3/uL (150.0-450.0) 10/04/19 03:56 Plt Count Comment Adequate (ADEQUATE) 10/04/19 03:56 MPV 7.9 fL (7.4-11.0) 10/04/19 03:56 Neut % (Auto) 80.8 % (42.0-75.0) H 10/04/19 03:56 Lymph % (Auto) 11.0 % (21.0-51.0) L 10/04/19 03:56 [place] % (Auto) 5.5 % (0.0-13.0) 10/04/19 03:56 Eos % (Auto) 2.5 % (0.9-2.9) 10/04/19 03:56 Baso % (Auto) 0.2 % (0.2-1.0) 10/04/19 03:56 Neut # (Auto) 8.4 x10^3/uL (2.2-4.8) H 10/04/19 03:56 Lymph # (Auto) 1.1 X10^3/uL (1.3-2.9) L 10/04/19 03:56 [place] # (Auto) 0.6 x10^3/uL (0.3-0.8) 10/04/19 03:56 Eos # (Auto) 0.3 x10^3/uL (0.0-0.2) H 10/04/19 03:56 Baso # (Auto) 0.0 X10^3/uL (0.0-0.1) 10/04/19 03:56 Absolute Nucleated RBC 0.0 /100WBC 10/04/19 03:56 Plt Morphology Comment Normal (NORMAL) 10/04/19 03:56 RBC Morphology Abnormal (NORMAL) A 10/04/19 03:56 Hypochromasia 1+ A 10/04/19 03:56 Anisocytosis Slight A 10/04/19 03:56 Microcytosis Slight A 09/28/19 06:13 PT 12.6 SECONDS (11.8-14.3) 09/26/19 04:13 INR Target Range - 09/26/19 04:13 INR 0.98 (0.8-1.3) 09/26/19 04:13 APTT 25.2 SECONDS (22.9-36.5) 09/26/19 04:13 PTT Comment - 09/26/19 04:13 Sodium 138 mmol/L (136-145) 10/04/19 03:56 Corrected Sodium 138 mmol/L (136-145) 10/04/19 03:56 Potassium 3.4 mmol/L (3.5-5.1) L 10/04/19 03:56 Chloride 101 mmol/L (98-107) 10/04/19 03:56 Carbon Dioxide 31.3 mmol/L (21-32) 10/04/19 03:56 BUN 2 mg/dL (7-18) L 10/04/19 03:56 Creatinine 0.57 mg/dL (0.55-1.02) 10/04/19 03:56 Est GFR (MDRD) Af Amer > 60 (>60) 10/04/19 03:56 Est GFR (MDRD) Non-Af > 60 (>60) 10/04/19 03:56 Glucose 114 mg/dL (65-99) H 10/04/19 03:56 Calcium 8.4 mg/dL (8.5-10.1) L 10/04/19 03:56 Corrected Calcium 9.8 mg/dL (8.5-10.1) 10/04/19 03:56 Magnesium 1.6 mg/dL (1.7-2.9) L 10/04/19 03:56 Iron 14 ug/dL (50-175) L 09/25/19 20:27 Transferrin 343 mg/dL (202-364) 09/25/19 20:27 Ferritin 20 ng/mL (8-252) 09/25/19 20:27 Total Bilirubin 0.30 mg/dL (0.2-1.0) 10/04/19 03:56 AST 18 Units/L (15-37) 10/04/19 03:56 ALT 15 Units/L (12-78) 10/04/19 03:56 Alkaline Phosphatase 91 Units/L (46-116) 10/04/19 03:56 Total Protein 6.1 g/dL (6.4-8.2) L 10/04/19 03:56 Albumin 2.3 g/dL (3.4-5.0) L 10/04/19 03:56 Globulin 3.8 g/dL (2.5-4.5) 10/04/19 03:56 Albumin/Globulin Ratio 0.6 Ratio (1.1-2.1) L 10/04/19 03:56 Amylase 26 Units/L (25-115) 09/25/19 19:01 Lipase 230 Units/L (73-393) 09/25/19 19:01 Carcinoembryonic Ag 1426.0 ng/mL (0.0-3.0) H 09/28/19 06:13 Vitamin B12 1182 pg/mL (193-986) H 09/25/19 20:27 Folate 12.1 ng/mL (>8.6) 09/25/19 20:27 Specimen Type Catherized urine 10/01/19 12:43 Urine Color Yellow (YELLOW) 10/01/19 12:43 Urine Appearance Clear (CLEAR) 10/01/19 12:43 Urine pH 7.0 (5.0 - 8.0) 10/01/19 12:43 Ur Specific [place] 1.010 (1.000-1.030) 10/01/19 12:43 Urine Protein Negative (NEGATIVE) 10/01/19 12:43 Urine Glucose (UA) Negative (NEGATIVE) 10/01/19 12:43 Urine Ketones Negative (NEGATIVE) 10/01/19 12:43 Urine Occult Blood Negative (NEGATIVE) 10/01/19 12:43 Urine Nitrite Negative (NEGATIVE) 10/01/19 12:43 Urine Bilirubin Negative (NEGATIVE) 10/01/19 12:43 Urine Urobilinogen Normal (NORMAL) 10/01/19 12:43 Ur Leukocyte Esterase Negative (NEGATIVE) 10/01/19 12:43 Urine RBC 0-2 /HPF (0-3) 09/25/19 18:29 Urine WBC 3-5 /HPF (0-5) 09/25/19 18:29 Ur Squamous Epith Cells Many /HPF (NEGATIVE) 09/25/19 18:29 Urine Bacteria Trace /HPF (NEGATIVE) 09/25/19 18:29 Ur Culture Indicated? No/not indicated 09/25/19 18:29 Tissue Pathology To follow 10/01/19 13:10 Blood Type B POSITIVE 10/01/19 11:27 Antibody Screen Negative 10/01/19 11:27 Crossmatch See Detail 10/01/19 11:27 - Assessment and Plan 1: rectal ca with liver mets . s/p abdominal surgery as above . DVT prophylaxis . start on liquid diet . d/c IV ATB - Problem Patient Problems: Patient Problems Constipation (Acute) K59.00 Anemia (Acute) D64.9 Liver masses (Acute) R16.0
[2019-10-04] MEDS: MICRO K EXTEN CAP 10 MEQ PO PRN (14:39)
[2019-10-04] MEDS: MAGNESIUM SULFATE 1 GRAM/100 mL PREMIX 1 GM/100 ML BAG IV SCH ×2 (14:40→17:00)
[2019-10-04] MEDS: NORCO 10/325 TAB PO PRN ×2 (19:57→23:43)
[2019-10-05] MEDS: D5 1/2 NS 1000 ML 1,000 ML IV SCH ×4 (03:22→20:06)
[2019-10-05] MEDS: NORCO 10/325 TAB PO PRN ×5 (05:43→21:28)
[2019-10-05] MEDS: MAGNESIUM SULFATE 1 GRAM/100 mL PREMIX 1 GM/100 ML BAG IV SCH (05:52)
[2019-10-05] MEDS: PROTONIX INJ 40 MG VIAL IVP SCH ×2 (08:32→20:06)
[2019-10-05] MEDS: COLACE CAP 100 MG PO PRN (08:33)
[2019-10-05] MEDS: LOVENOX INJ 40 MG SYR SC SCH (08:33)
[2019-10-05 09:07] LABS: ALANINE AMINOTRANSFERASE 23 Units/L (12-78); ALBUMIN 2.3 g/dL (3.4-5.0); ALKALINE PHOSPHATASE 102 Units/L (46-116); ASPARTATE AMINO TRANSFERASE 30 Units/L (15-37); BASOPHILS # (AUTO) 0.1 X10^3/uL (0.0-0.1); BASOPHILS % (AUTO) 1.2 % (0.2-1.0); BLOOD UREA NITROGEN 3 mg/dL (7-18); CALCIUM 8.6 mg/dL (8.5-10.1); CARBON DIOXIDE 29.4 mmol/L (21-32); CHLORIDE 103 mmol/L (98-107); CREATININE 0.56 mg/dL (0.55-1.02); EOSINOPHILS # (AUTO) 0.7 x10^3/uL (0.0-0.2); HEMATOCRIT 25.7 % (36.0-47.0); HEMOGLOBIN 8.3 g/dL (12.0-16.0); LYMPHOCYTES # (AUTO) 1.3 X10^3/uL (1.3-2.9); LYMPHOCYTES % (AUTO) 16.4 % (21.0-51.0); MEAN CORPUSCULAR HEMOGLOBIN 24.2 pg (27.0-34.0); MEAN CORPUSCULAR HGB CONC 32.4 g/dL (33.0-35.0); MEAN CORPUSCULAR VOLUME 74.6 fL (80.0-100.0); MONOCYTES # (AUTO) 0.6 x10^3/uL (0.3-0.8); MONOCYTES % (AUTO) 7.2 % (0.0-13.0); NEUTROPHILS # (AUTO) 5.3 x10^3/uL (2.2-4.8); NEUTROPHILS % (AUTO) 66.2 % (42.0-75.0); PLATELET COUNT 457 X10^3/uL (150.0-450.0); RED BLOOD COUNT 3.44 X10^6/uL (3.5-5.4); RED CELL DISTRIBUTION WIDTH 24.8 % (11.6-16.5); SODIUM 141 mmol/L (136-145); TOTAL PROTEIN 5.9 g/dL (6.4-8.2); WHITE BLOOD COUNT 7.9 X10^3/uL (3.6-10.0); eGFR NON BLACK RACES > 60 (>60)
[2019-10-05 09:46] LABS: ANISOCYTOSIS 3+; PLATELET MORPHOLOGY COMMENT NORMAL (NORMAL)
[2019-10-05] MEDS: MICRO K EXTEN CAP 10 MEQ PO PRN (10:58)
[2019-10-05] MEDS: MAGNESIUM SULFATE 1 GRAM/100 mL PREMIX 1 GM/100 ML BAG IV PRN ×2 (10:59→12:29)
[2019-10-05] MEDS: LOVENOX INJ 30 MG SYR SC SCH (12:03)
[2019-10-05] MEDS ORDERED: COLACE CAP 100 MG PO SCH (21:00)
[2019-10-05] MEDS ORDERED: MIRALAX POWDER (1 DOSE 17 G) PO SCH (21:00)
[2019-10-06] MEDS: NORCO 10/325 TAB PO PRN ×3 (01:28→09:49)
[2019-10-06] MEDS: D5 1/2 NS 1000 ML 1,000 ML IV SCH ×2 (04:39→10:10)
[2019-10-06 05:08] LABS: BASOPHILS # (AUTO) 0.1 X10^3/uL (0.0-0.1); EOSINOPHILS # (AUTO) 0.8 x10^3/uL (0.0-0.2); HEMOGLOBIN 8.8 g/dL (12.0-16.0); LYMPHOCYTES # (AUTO) 1.2 X10^3/uL (1.3-2.9); LYMPHOCYTES % (AUTO) 13.2 % (21.0-51.0); MEAN CORPUSCULAR HEMOGLOBIN 24.2 pg (27.0-34.0); MEAN CORPUSCULAR HGB CONC 32.6 g/dL (33.0-35.0); MEAN CORPUSCULAR VOLUME 74.4 fL (80.0-100.0); MEAN PLATELET VOLUME 7.9 fL (7.4-11.0); MONOCYTES # (AUTO) 0.5 x10^3/uL (0.3-0.8); MONOCYTES % (AUTO) 5.7 % (0.0-13.0); NEUTROPHILS # (AUTO) 6.7 x10^3/uL (2.2-4.8); NEUTROPHILS % (AUTO) 71.1 % (42.0-75.0); PLATELET COUNT 505 X10^3/uL (150.0-450.0); RED BLOOD COUNT 3.64 X10^6/uL (3.5-5.4); RED CELL DISTRIBUTION WIDTH 25.1 % (11.6-16.5); WHITE BLOOD COUNT 9.4 X10^3/uL (3.6-10.0)
[2019-10-06 05:23] LABS: ALANINE AMINOTRANSFERASE 29 Units/L (12-78); ALBUMIN 2.3 g/dL (3.4-5.0); ALKALINE PHOSPHATASE 144 Units/L (46-116); ASPARTATE AMINO TRANSFERASE 30 Units/L (15-37); BLOOD UREA NITROGEN 4 mg/dL (7-18); CALCIUM 8.8 mg/dL (8.5-10.1); CARBON DIOXIDE 28.8 mmol/L (21-32); CHLORIDE 104 mmol/L (98-107); COR CA(FOR HYPOALB) 10.2 mg/dL (8.5-10.1); COR NA(FOR HYPERGLY) 141 mmol/L (136-145); CREATININE 0.58 mg/dL (0.55-1.02); MAGNESIUM 1.6 mg/dL (1.7-2.9); SODIUM 141 mmol/L (136-145); TOTAL PROTEIN 6.2 g/dL (6.4-8.2); eGFR NON BLACK RACES > 60 (>60)
[2019-10-06 05:34] LABS: ANISOCYTOSIS 1+; HYPOCHROMASIA 2+; MICROCYTOSIS SLIGHT; PLATELET MORPHOLOGY COMMENT NORMAL (NORMAL)
[2019-10-06] MEDS: PROTONIX INJ 40 MG VIAL IVP SCH (08:49)
[2019-10-06] MEDS: MAGNESIUM SULFATE 1 GRAM/100 mL PREMIX 1 GM/100 ML BAG IV SCH (08:49)
[2019-10-06] MEDS: MAGNESIUM SULFATE 1 GRAM/100 mL PREMIX 4 G/400 ML BAG IV SCH ×4 (08:49→12:29)
[2019-10-06] MEDS: LOVENOX INJ 30 MG SYR SC SCH (08:50)
[2019-10-06 13:12] VITALS: BP 120/55
== END 2019-10-06 13:40 | disposition home or self-care (01) | DRG 330 ==
LOC: ER 18:02 → MED/SURG 20:54 → ICU 10-01 16:49
PROVIDERS: ADMIT Obstetrics & Gynecology Obstetrics; ATTEND Obstetrics & Gynecology Obstetrics
CPT/HCPCS: 36415; 36430; 71020; 71046; 74176; 74183; 80053; 81001; 81003; 82150; 82378; 82607; 82728; 82746; 83540; 83690; 83735; 84466; 85014; 85018; 85025; 85610; 85730; 86850; 86900; 86901; 86922; 87040; 93005; 94760; 96365; 96374; 96375; 97110; 97162; 97167; 97530; 99284; A4216; A4217; A4222; C9113; J3490; P9016; S0030; J0330; J0690; J1100; J1170; J1650; J1756; J1956; J2175; J2250; J2270; J2405; J2704; J2710; J3010; J3475; J3480; J7030; J7040; J7050; J7120; S5010